=== PATIENT | male | born 1975 | race Caucasian/White ===

== ENCOUNTER → 2016-11-28 | Day surgery (SDC) | payer OTHER ==
[2016-11-28 08:14] LABS: HCT 46.9 % (42.0-52.0); HGB 16.4 g/dl (13.2-18.0); MCH 29.8 pg (25.0-31.0); MCV 85.3 fL (78.0-100.0); RBC 5.5 M/uL (4.70-6.00); RDW 13.4 % (11.5-14.0); WBC 5.5 K/uL (4.0-10.5)
[2016-11-28 08:29] LABS: ALBUMIN 4.9 g/dL (3.5-5.0); BILIRUBIN - TOTAL 0.6 mg/dL (0.1-1.0); CREATININE 1.3 mg/dL (0.7-1.2); GLOBULIN (CALCULATION) 2.8 g/dL (2.2-4.2); POTASSIUM 3.9 mmol/L (3.5-5.1); TOTAL PROTEIN 7.7 g/dL (6.4-8.3)
== END | disposition home or self-care (01) ==
LOC: FAS 07:50
PROVIDERS: Surgery
DX: D12.6 Benign neoplasm of colon, unspecified (principal); K64.1 Second degree hemorrhoids; Z79.899 Other long term (current) drug therapy; Z98.890 Other specified postprocedural states; Z86.010 Personal history of colon polyps; Z87.891 Personal history of nicotine dependence
CPT/HCPCS: 36415; 80053; 88305; J1100; J2704